=== PATIENT | female | born 1950 | race Caucasian/White ===

== ENCOUNTER → 2016-11-20 | Outpatient (CLI) | payer OTHER | LOC: EDBD 09:12 → MRI 09:12 | DX: D49.2 Neoplasm of unspecified behavior of bone, soft tissue, and skin (principal) ==

== ENCOUNTER 2016-12-23 05:11 | Day surgery (SDC) | payer OTHER ==
[~2016-12-23] VITALS: Ht 167.6 cm; Wt 92.3 kg
--- NOTE | ~2016-12-23 | O ---
[facility] [place] [address] OPERATIVE REPORT Name: KALI CABRERA Room #: DEP [facility].#: [id number] Admission: 12/23/16 Attend Phys: Efra Gannon MD Discharge: 12/24/16 Date of : 52 Report #: [id number] THIS REPORT FOR: //name// CC: Raymundo Gannon DATE OF SERVICE: 12/23/2016 PREOPERATIVE DIAGNOSIS: Left intraconal orbital tumor. POSTOPERATIVE DIAGNOSIS: Left intraconal orbital tumor. PROCEDURE: Left lateral orbitotomy with removal of bone and lesion. SURGEONS: Efra Gannon M.D. and Raymundo Hanley M.D. ANESTHESIA: General. COMPLICATIONS: None. ESTIMATED BLOOD LOSS: 200 mL. INDICATIONS FOR SURGERY: This pleasant 66-year-old woman had an intraconal left orbital mass discovered as an incidental finding on a workup for cephalgia. The lesion was initially thought to be asymptomatic; however, on closer inspection, evaluation revealed that the mass was abutting the posterior aspect of the globe and had noted her vision in her left eye was becoming more poor with time. Visual field testing showed central suppression in that left eye, but she did not have an appreciable efferent pupillary defect. With the induced ____ and her declining vision and the presence of the mass, the decision was undertaken to remove the lesion. A 2-surgeon approach is being planned in order to limit the comorbidity associated with this specific surgery. Informed consent was obtained to include but not limit to the potential risk for loss of vision, bleeding, infection, double vision and the potential need for further surgery or treatment. DESCRIPTION OF PROCEDURE: The patient was taken to the operating room where general laryngeal mask anesthesia was undertaken. The lateral left upper lid, the left infratemporal fossa and the lateral orbit were anesthetized with Xylocaine with epinephrine mixed with Marcaine and Wydase. The patient received intravenous antibiotics and Decadron at the beginning of the case. She was [address] [address] OPERATIVE REPORT Name: KALI CABRERA Room #: DEP [facility] [place]..#: [id number] Admission: 12/23/16 Attend Phys: Efra Gannon MD Discharge: 12/24/16 Date of : 52 Report #: [id number] sterilely prepped and draped using a wiy-mnufsu-cewimlklag solution because of her stated anaphylactic allergic reaction to topical Betadine. With her being sterilely prepped and draped, a fine-tip skin marking pen was then utilized to outline an extended left upper lid crease incision into the infratemporal fossa. An incision was then made with a #15 blade, following which relatively brisk bleeding ensued. This ended up being the standard for most of the case, that being that she had a tendency to ooze and bleed throughout. Hemostasis was achieved laterally with diligent pinpoint monopolar cautery. The dissection was then carried out with the monopolar unit down to the periosteum of the lateral orbit. The periosteum was then incised with the cutting Bovie around the entire lateral orbit from the suture line superiorly down to the reflection of the floor with the lateral orbit. The periosteum was then elevated with a [place] periosteal elevator laterally back into the infratemporal fossa. The temporalis muscle was then drawn laterally out of the temporalis fossa, and hemostasis was achieved as best possible with monopolar cautery. Several moistened cottonoids were used to retract the temporalis muscle laterally. A [place] periosteal elevator was then used to elevate the periosteum back into the inferior and lateral orbit. The orbital contents then were protected medially with a [place]. Utilizing an oscillating saw, an osteotomy was made at the superior aspect of the dissection in the area of the suture line protecting the orbital contents with continuous irrigation. The same blade was then used to make an osteotomy inferolaterally that was generous in scope. The lateral orbital wall was then easily outfractured. The remaining temporalis attachments to the bone were trimmed with a monopolar cautery. The temporalis muscle was then trimmed back from the remaining bone. The osteotomy laterally was then completed with a front-biting rongeur. Relatively brisk bleeding once again ensued with some of the deeper cuts, which were short of the diploe of the lateral orbit but in an area where there was a perforating vessel that proved to be challenging to occlude. The decision was made after several attempts to cauterize it and occlude it with bone wax to pack it and address it at the end of the case. Four cottonoids were ultimately placed laterally, and traction was placed on them. The orbital contents were then inspected and the retrobulbar space palpated. The lesion could be felt behind the globe as it had a globular shape, but it had a tendency to float in the opposite direction of palpation. Thus to say that if it was palpated superiorly, it balloted inferiorly, if it was palpated inferiorly, it would ballot superiorly. The periosteum was then opened inferiorly below the lateral rectus muscle, and the dissection was carried out in a blunt fashion to come down onto the lesion. Npks-[id number] blunt dissection was undertaken utilizing 3 ____ retractors and cotton tip applicators and gentle feather tip suction. The dissection was not fruitful in that plane [facility] [address] [place] [address] OPERATIVE REPORT Name: KALI CABRERA Room #: DEP [facility].#: [id number] Admission: 12/23/16 Attend Phys: Efra Gannon MD Discharge: 12/24/16 Date of : 52 Report #: [id number] when first undertaken. Multiple attempts were taken but once again only with blunt instruments. The decision was then made to come back superiorly. The lateral rectus muscle was then retracted inferiorly, and the dissection was undertaken back into the retrobulbar intraconal space. Brief glimpses of the lesion would be seen as it floated in the opposite direction of the dissection. The decision was then made to try ballot once more. A vessel loop was placed around the lateral rectus muscle to draw it superiorly. The dissection was then undertaken inferiorly and drawn out with once again the same results being observed, namely that of the lesion floating away as we attempted to identify it. Another attempt was then made superiorly retracting the muscle inferiorly, and the tumor was able to be balloted back into the field so that it had a tendency to float up. At this point, the dissection was undertaken on top of the lesion in a blunt fashion utilizing cotton-tipped applicators. The lesion was then floated out so that it was approximately half exposed. It had the appearance of a mulberry. The cryo unit was then applied to the anterior tip of the lesion, and gentle traction was applied anteriorly. A cotton-tipped applicator was then used to try to separate the blunt tissues posteriorly from the lesion, which was successful as the lesion was delivered en bloc. The orbit was inspected, and there was no significant intraorbital bleeding. The orbital contents were then retracted laterally, and the previously placed cottonoids were removed. Brisk bleeding occurred after the third cottonoid was removed, which was visualized to come from a perforating vessel that was superolateral in location. The site could not be cauterized with a monopolar or a bipolar unit. It was packed finally successfully with bone wax. We were 1 short on cottonoids at that point, so the wound was reinspected and the cottonoid was not found. The dissection was carried out more inferiorly, and the cottonoid was found wadded up in the temporalis muscle. When this cottonoid was removed, it induced bleeding again from the perforating vessels superiorly. Suction was undertaken with 3 hands in the wound, and the wound was exposed down to the bone where several attempts at bone wax were finally successful in occluding the vessel. The surgical site was then inspected for several minutes in order to ensure that hemostasis had been obtained. A brief discussion was undertaken with respect to whether a drain needed to be placed with the ultimate decision being not to place a drain. The subcutaneous structures were then closed with interrupted 5-0 Vicryl sutures in a layered fashion. The skin was closed with a running 6-0 plain gut suture. The wound was then cleaned and dressed with erythromycin ophthalmic ointment on [address] [address] OPERATIVE REPORT Name: KALI CABRERA [id number] Admission: 12/23/16 Attend Phys: Efra Gannon MD Discharge: 12/24/16 Date of : 52 Report #: [id number] the wound. The patient is thought to have tolerated the procedure well with no distinct intraoperative complications. It is anticipated because of the tension on the lateral rectus muscle that she will probably be esotropic for a short period of time afterwards and probably have limited abduction. This is thought to most likely improve with time. <ELECTRONICALLY SIGNED> By: Efra Gannon MD 12/30/16 0621 [id number] 1948 Efra Gannon MD /nt
--- NOTE | ~2016-12-23 | S ---
[facility] [place] [address] SURGICAL PATH RPT PROCEDURE Name: KALI CABRERA Room #: [facility]..#: [id number] Admission: 12/23/16 Date of : 52 Discharge: 12/24/16 Report #: [id number] Path Case #: [id number] PATHOLOGY REPORT COLLECTION DATE: 12/23/2016 RECEIVED DATE: 12/24/2016 SUBMITTING PHYS: Dr. Efra Gannon OTHER PHYS: Dr. Raymundo Rubio SPECIMEN(S) RECEIVED: A.Left orbital mass * * * * * * * * * * * * FINAL DIAGNOSIS: "Left orbital mass", excision: - Cavernous hemangioma. (CLW:[facility]; 12/25/2016) COMMENT: Clinical correlation is recommended. No malignancy is seen. PATHOLOGIST: Zamzam Shaver M.D. REPORT ELECTRONICALLY SIGNED BY: Zamzam Shaver M.D. DATE/TIME: 12/25/2016 14:41 * * * * * * * * * * * * GROSS PATHOLOGY: The specimen is received in formalin, labeled "Kali Rashid, left orbital mass," and consists of a multilobulated, mayen-black, and encapsulated segment of soft tissue measuring 1.8 x 1.5 x 1.2 cm. It is inked black. Sectioning reveals dark brown-red, spongy and soft cut surfaces. It is entirely submitted in cassettes A1-A2. (SDY; 12/24/2016) CLINICAL HISTORY: Left orbital mass INITIAL CPT CODE(S): A; 04362 Professional services performed by [facility] at [facility] [address] , [place] [address] Technical services performed by [facility] at [address] [place] [address] [place] [address] SURGICAL PATH RPT PROCEDURE Name: KALI CABRERA Room #: [place] [facility] [place]#: [id number] Admission: 12/23/16 Date of : 52 Discharge: 12/24/16 Report #: [id number] Path Case #: [id number] [place] [address]. [facility] [address] [place] [address] PHONE: [phone] DIRECTOR: Zbigniew Smith M.D. * * * END OF REPORT * * *
[2016-12-23 15:51] VITALS: BP 120/73
[2016-12-23 21:15] VITALS: BP 140/89
[2016-12-24 00:10] VITALS: BP 138/80
[2016-12-24 03:15] VITALS: BP 137/77
[2016-12-24 07:58] VITALS: BP 110/62
[2016-12-24 09:41] VITALS: BP 110/62
== END 2016-12-24 14:15 | disposition home or self-care (01) ==
LOC: OR 05:11 → TBA 05:12 → OR 09:44 → 4S 20:02 → OR 12-24 14:15
DX: D18.09 Hemangioma of other sites (principal); Z87.891 Personal history of nicotine dependence; Z98.890 Other specified postprocedural states; Z90.710 Acquired absence of both cervix and uterus
CPT/HCPCS: 50010; 50101; 50386; 50398; 50426; 51636; 56527; 56528; 56531; 56871; 62110; 62900; 70005